=== PATIENT | male | born 1995 | race African-American/Black ===

== ENCOUNTER 2018-07-08 02:36 | Emergency (ER) | payer MEDICAID ==
[~2018-07-08] VITALS: Ht 185.4 cm; Wt 72.6 kg
[2018-07-08 02:59] VITALS: BP 147/96
[2018-07-08] MEDS ORDERED: PHENERGAN25 M1 ORAL (03:12)
--- NOTE | 2018-07-08 03:13 | Emergency Room Report ---
History of Present Illness General Chief Complaint: Vomiting Source: Patient Present Illness HPI Is a 23-year-old male with no past medical history. He presents with chief complaint of headache and vomiting. Onset for last 4 days. Oxne-zvn-przpfct stuff not helping. No fever or chills. His hiccup to the point that his vomiting. [place] tightness in his chest and pain because of the hiccuping. No fever chills. no diarrhea. Similar symptom in the past. Denies any psychiatric issue. Pain is 7 out of 10. 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 Review of Systems Eye: Denies: eye pain, blurred vision ENT: Denies: ear pain, nose congestion, throat swelling Respiratory: Denies: cough, shortness of breath Cardiovascular: Denies: chest pain, palpitations Gastrointestinal: Reports: abdominal pain; Denies: diarrhea, nausea, vomiting Musculoskeletal: Denies: back pain, joint pain Skin: Denies: rash Neurological: Denies: headache, numbness Endocrine: Denies: increased thirst, increased urine Hematologic/Lymphatic: Denies: easy bruising All Other Systems: negative except mentioned in HPI Physical Exam Vital Signs Date Time Temp Pulse Resp B/P (MAP) Pulse Ox O2 Delivery O2 Flow Rate FiO2 07/08/18 02:37 97.6 76 18 147/96 100 Room Air 97.5 vitals unremarkable Sp02 EP Interpretation: reviewed, normal General Appearance: well appearing, no apparent distress, alert Head: normocephalic, atraumatic Eyes: bilateral eye PERRL, bilateral eye EOMI ENT: hearing grossly normal, normal pharynx Neck: full range of motion, supple, no meningismus Respiratory: chest non-tender, lungs clear, normal breath sounds Cardiovascular #1: regular rate, rhythm, no murmur Gastrointestinal: normal bowel sounds, non tender, no mass, no organomegaly, no bruit, non-distended Musculoskeletal: back normal, gait/station normal, normal range of motion Psychiatric: mood/affect normal Skin: warm/dry Medical Decision Making Diagnostic Impression: Primary Impression: Hiccups ER Course Patient with hiccups. No evidence of dehydration. No evidence of any intractable vomiting. Better after Thorazine. We'll discharge home. Last Vital Signs Date Time Temp Pulse Resp B/P (MAP) Pulse Ox O2 Delivery O2 Flow Rate FiO2 07/08/18 02:59 97.5 80 18 147/96 100 Room Air 97.5 Status: improved Disposition: HOME, SELF-CARE Condition: Stable Scripts Promethazine Hcl* (PHENERGAN*) 25 Mg Tablet 25 MG ORAL Q6H, #15 TAB 0 Refills Prov: Todd Busby MD 07/08/18 Referrals: NOT CHOSEN IPA/,REFERRING (PCP) Additional Instructions: Follow-up with your doctor in 7 days. Return if symptom worsen. Todd Busby MD Jul 08, 2018 03:13
[2018-07-08 03:22] VITALS: BP 140/94
[2018-07-08 03:36] VITALS: BP 140/94
== END 2018-07-08 03:40 | disposition home or self-care (01) ==
LOC: EMR 03:03
DX: R06.6 Hiccough (principal); R51 Headache; R11.10 Vomiting, unspecified; R68.84 Jaw pain; R07.89 Other chest pain; R10.9 Unspecified abdominal pain; K22.8 Other specified diseases of esophagus; F12.90 Cannabis use, unspecified, uncomplicated
CPT/HCPCS: 96372; 99283; J3230